=== PATIENT | female | born 1950 | race Caucasian/White ===

== ENCOUNTER → 2017-07-10 | Outpatient (CLI) | payer OTHER ==
[~2017-07-10] MED LIST: ALIGN; ALLEGRA; ALLEGRA ALLERGY60 MG PO; ASTELIN30 ML; ASTELIN30 ML NS; CEFDINIR; CEFDINIR300 MG PO; CIPRO250 M1 PO; CIPROFLOXACIN500 M1 PO; EFFEXOR; EFFEXOR 5050 MG/1 T1 PO; KEFLEX500 MG PO; MUCINEX TA600 MG/TA2 PO; ONDANSETRON; ONDANSETRON HCL4 M2 PO; PHENERGAN50 MG RC; SIMVASTATIN; TYLENOL PM PO; ZOFRAN 4 MG ORAL4 M1 DIS
== END ==
LOC: M.ULTRA 10:03
DX: K76.0 Fatty (change of) liver, not elsewhere classified (principal)